=== PATIENT | male | born 1990 | race Caucasian/White ===

== ENCOUNTER 2017-12-19 12:44 | Emergency (ER) | payer OTHER, SELFPAY ==
[2017-12-19 12:45] VITALS: BP 119/67; PULSE 73; RESP 18; TEMP 36.9; O2SAT 99; BMI 30.8
--- NOTE | 2017-12-19 13:05 | EKG12_ITS ---
Test Reason : DYSRHYTHMIA Blood Pressure : / mmHG Vent. Rate : 070 BPM Atrial Rate : 070 BPM P-R Int : 150 ms QRS Dur : 104 ms QT Int : 396 ms P-R-T Axes : 062 071 016 degrees QTc Int : 427 ms Normal sinus rhythm Incomplete right bundle branch block Borderline ECG Confirmed by ALEJANDRA PATEL, HAIDER ([id number]), medical transcription editor ALLIE TRAN ([id number]) on 12/22/2017 11:27:16 AM Referred By: REGGIE Confirmed By:HAIDER ROBERTS MD
--- NOTE | 2017-12-19 13:05 | RAD_ITS ---
STUDY: X-RAY CHEST REASON FOR EXAM: Male, 27 years old. Syncopal episode. TECHNIQUE: Single AP portable view of the chest. COMPARISON: None. FINDINGS: The lungs are clear and expanded. There is no demonstrated pleural abnormality. Normal size heart. Normal mediastinum and adan. Normal visualized pulmonary arteries. Normal visualized aortic arch and descending thoracic aorta. Normal visualized thoracic spine. Normal visualized ribs, clavicles, and shoulders. There is no demonstrated abnormality of the visualized soft tissue structures of the upper abdomen. RAD/Chest 1 View (Portable) IMPRESSION: Normal x-ray examination of the chest. Electronically Signed: Chicho Dao DO at 13:35 EST Tel [phone], Service support ,
--- NOTE | 2017-12-19 13:06 | ED.VISSUMM ---
- ER Visit Summary Date of Service: 12/19/17 Chief Complaint: Passed out History of Present Illness: The patient is a 27 M no significant past medical or surgical history. Patient states he was having an argument with his when the next thing he remembered was he was on the right and passed out. Prior to the episode he denied feeling lightheaded or dizzy. He denies any headache. No chest pain. No shortness of breath. Denies any prior history of syncopal events. Denies any recent illness. He denies any headache, chest pain, shortness of breath. He denies any recent nausea, vomiting, diarrhea, fever or melena. He states his been eating and drinking normally. He currently is on no medications. He denies any injuries. Physical Examination: Well-appearing young male. Vital signs are. No acute distress. H EENT exam pupils round reactive light. No facial trauma. No facial droop. Normal speech. Scalp nontender. No signs of trauma. C-spine nontender. Trachea midline. Lungs clear to auscultation bilaterally. Heart regular rate and rhythm no murmur rate about chest wall nontender. Abdomen soft nontender. Pelvic girdle intact. Patient is moving all 4 extremities. They are neurovascularly intact. Calves are nontender without edema or cords. He has full range of motion all 4 extremities. Back exam nontender neurologically is awake and alert. No focal motor or sensory deficits. NIH is 0. Fingertip to nose within normal limits. Test Results: Chest x-ray shows normal cardiac silhouette mediastinum. EKG is acute signs of NC or ischemia. He does have an incomplete right bundle branch block. There is no old EKG available for comparison. CBC normal. White count of 9. Hemoglobin 14. Electrolytes unremarkable normal creatinine and gap. Orthostatic vital signs were negative. Emergency Department Course and Treatment: Patient with acute syncopal event. Exam is normal. On repeat exam the patient was doing well 1315. I spoke with he and his at bedside. They are comfortable with him being discharged to home. She witnessed the incident. She denies any seizure activity. Treatment Plan: Discharged home. Follow-up as an outpatient. Disposition: Discharge Impression: Acute syncope of uncertain etiology This note was generated with [employer] dictation software. It may contain incorrect words, spelling, and punctuation that were not noted in review of the chart prior to signing ED Disposition - Plan for ED Patient: Chief Complaint: Syncope Referrals: Care Physician,No Primary [Primary Care Provider] -
--- NOTE | 2017-12-19 13:09 | ED.DCSUM_ITS ---
- ER Visit Summary Date of Service: 12/19/17 Chief Complaint: Passed out History of Present Illness: The patient is a 27 M no significant past medical or surgical history. Patient states he was having an argument with his when the next thing he remembered was he was on the right and passed out. Prior to the episode he denied feeling lightheaded or dizzy. He denies any headache. No chest pain. No shortness of breath. Denies any prior history of syncopal events. Denies any recent illness. He denies any headache, chest pain, shortness of breath. He denies any recent nausea, vomiting, diarrhea, fever or melena. He states his been eating and drinking normally. He currently is on no medications. He denies any injuries. Physical Examination: Well-appearing young male. Vital signs are. No acute distress. H EENT exam pupils round reactive light. No facial trauma. No facial droop. Normal speech. Scalp nontender. No signs of trauma. C-spine nontender. Trachea midline. Lungs clear to auscultation bilaterally. Heart regular rate and rhythm no murmur rate about chest wall nontender. Abdomen soft nontender. Pelvic girdle intact. Patient is moving all 4 extremities. They are neurovascularly intact. Calves are nontender without edema or cords. He h as full range of motion all 4 extremities. Back exam nontender neurologically is awake and alert. No focal motor or sensory deficits. NIH is 0. Fingertip to nose within normal limits. Test Results: Chest x-ray shows normal cardiac silhouette mediastinum. EKG is acute signs of DE or ischemia. He does have an incomplete right bundle branch block. There is no old EKG available for comparison. CBC normal. White count of 9. Hemoglobin 14. Electrolytes unremarkable normal creatinine and gap. Orthostatic vital signs were negative. Emergency Department Course and Treatment: Patient with acute syncopal event. Exam is normal. On repeat exam the patient was doing well 1315. I spoke with he and his at bedside. They are comfortable with him being discharged to home. She witnessed the incident. She denies any seizure activity. Treatment Plan: Discharged home. Follow-up as an outpatient. Disposition: Discharge Impression: Acute syncope of uncertain etiology This note was generated with [employer] dictation software. It may contain incorrect words, spelling, and punctuation that were not noted in review of the chart prior to signing ED Disposition - Plan for ED Patient: Chief Complaint: Syncope Referrals: Care Physician,No Primary [Primary Care Provider] -
[2017-12-19 13:20] VITALS: BP 107/52; BP 112/49; BP 118/60; PULSE 69; PULSE 78; PULSE 85
[2017-12-19 13:25] LABS: Absolute Lymphocyte Count 1.35 X10^3/ul (0.83-4.51); Absolute Neutrophil Count 7.2 X10^3/uL (2.0-7.7); Basophil# 0.01 X10^3/uL; Basophil% 0.1 % (0-1); Eosinophil# 0.06 X10^3/uL; Eosinophils% 0.7 % (0-5); Hematocrit 42.3 % (40-54); Hemoglobin 14.1 g/dl (13.0-16.5); Lymphocyte # 1.35 X10^3/ul (4.0); Lymphocyte % 14.9 % (19-41); Mean Corp Hgb Conc 33.3 g/gl (32-36); Mean Corpuscular Hgb 29.1 pg (27.0-32.0); Mean Corpuscular Volume 87.4 fL (80-94); Mean Platelet Vol. 10.7 fl (6.2-12.0); Monocyte# 0.51 X10^3/uL; Monocyte% 5.6 % (0-10); Neutrophil # 7.15 X10^3/uL (2.7-7.7); Neutrophil % 78.6 % (47-70); POSITIVE COUNT NO; POSITIVE DIFFERENTIAL NO; POSITIVE MORPHOLOGY NO; Platelet Count 162 K/mm3 (150-450); RBC Distribution Width SD 38.1 fl (35.1-43.9); Red Blood Count 4.84 M/mm3 (4.6-6.2); White Blood Count 9.1 K/mm3 (4.4-11.0)
[2017-12-19 13:37] LABS: Anion Gap 6 (5-15); BUN 15 mg/dL (7-18); BUN/Creat Ratio 19.1 RATIO (10-20); Calcium,Total 8.7 mg/dL (8.5-10.1); Chloride 105 mmol/L (98-107); Creatinine, Serum 0.78 mg/dL (0.70-1.30); EST Glomerular Filtration Rate 126 mL/min (>60); Est Glom Filt Rate - Afr Amer 152 mL/min (>60); Glucose 93 mg/dL (74-106); Sodium Level 141 mmol/L (136-145)
--- NOTE | 2017-12-19 14:31 | ED.DEP ---
ED Disposition - Plan for ED Patient: Disposition: Home or Assisted Living Chief Complaint: Syncope Instructions: ED Fainting Unkn Cause Referrals: Kota Plascencia MD [STAFF PHYSICIAN] - 1 Week if not improving Additional Instructions: Follow-up with primary care physician. Return if feeling worse.
[2017-12-19 14:58] VITALS: BP 112/63; PULSE 56; RESP 16; O2SAT 99
== END 2017-12-19 14:58 | disposition home or self-care (01) ==
PROVIDERS: Emergency Provider Emergency Medicine
DX: R55 Syncope and collapse (principal); I45.10 Unspecified right bundle-branch block
CPT/HCPCS: 71045; 80048; 85025; 93005; 99285; A4216

== ENCOUNTER → 2022-05-22 | Outpatient (CLI) | payer BC, OTHER, SELFPAY ==
--- NOTE | 2022-05-22 | VAS_PTH ---
PATIENT: MAYUR SIMMS LOC: [facility]#:[id number] AGE/SX: 31/M ROOM: RE05/22/[address]: Dr. Eliezer Tate MD : 1990 BED: DIS: 05/22/2022 SPEC #: [id number] RECD: 05/22/22 14:22 STATUS: CHASE RENash #: [id number] ROMAN: 05/22/22 00:[address]: Eliezer Tate DEPT: SURGICAL PATHOLOGY RECD BY: Christopher Strickland ENTERED: 05/25/22 11:29 SP TYPE: VAS OTHR DR: Vida Primary Care Phys Tissues: A - Vas deferens, NOS B - Vas deferens, NOS Procedures: Surgery Specimen Level II HEADER OPERATION: Bilateral partial vasectomy PRE-OP DIAGNOSIS: Sterilization TISSUE SUBMITTED: A ? Right vas deferens, B ? Left vas deferens MICROSCOPIC DIAGNOSIS A. Right vas deferens, partial vasectomy: Completely transected segment of vas deferens, no pathologic diagnosis. B. Left vas deferens, partial vasectomy: Completely transected segment of vas deferens, no pathologic diagnosis. JOSE:anita 05/26/2022 MICROSCOPIC DESCRIPTION Slides are reviewed. GROSS DESCRIPTION A - Received is one container designated right vas deferens. The specimen consists of a cylindrical segment of pink-villegas soft tissue measuring 1.2 cm in length and 0.2 cm in maximum diameter. The specimen is serially sectioned and totally submitted in one cassette. B - Received is one container designated left vas deferens. The specimen consists of a cylindrical segment of pink-villegas soft tissue measuring 1.0 cm in length and 0.2 cm in maximum diameter. The specimen is serially sectioned and totally submitted in one cassette. / AM:anita 05/25/2022 TC:4 CPT: 20892 x2
== END | disposition home or self-care (01) ==
PROVIDERS: Visit Provider Surgery
DX: Z30.2 Encounter for sterilization (principal)
CPT/HCPCS: 88302

== ENCOUNTER 2022-08-09 19:13 | Emergency (ER) | payer BC, OTHER, SELFPAY ==
[2022-08-09 19:14] VITALS: BP 140/86; PULSE 92; RESP 16; TEMP 36.4; O2SAT 96; BMI 38.5
[2022-08-09 19:30] VITALS: PULSE 75; RESP 16; O2SAT 99
--- NOTE | 2022-08-09 19:30 | EX.ED.DYSGE1 ---
HPI History of Present Illness Chief Complaint: Rash Detail of Chief Complaint: Rash Informant: patient Narrative Narrative: Patient presents with a rash that started yesterday. 2 days ago he had some chills and when he checked his temperature he did not have a fever and the highest he could get it was 99. Patient tells me that he has 3 children and 2 weeks ago they were all diagnosed with pusn-ranv-rfc-mouth disease. Patient has had a sore throat for 2 days. Denies any new soaps or detergents. Denies any exposures to poison frank or poison oak. PFSH PFS Medical History Arthritis Headaches, cluster Home Medications acetaminophen 300 mg-codeine 15 mg tablet 1 tab PO Q6H PRN pain #10 tabs 05/22/22 [Rx Last Taken Unknown] Allergy/AdvReac Type Severity Reaction Status Date / Time No Known Allergies Allergy Verified 05/29/22 07:51 Family History Other Colon cancer Heart disease Myocardial infarction Surgical History No significant past surgical history Social History Smoking Status: Never smoker alcohol intake: current alcohol intake frequency: a few times a month Alcohol type: beer substance use type: does not use what type of physical activity do you participate in: walking and aerobics frequency: 3-4 times per week ROS ROS ED Review of Systems ROS Unobtainable: other Constitutional Constitutional ED: Reports lethargy; Denies chills, fever(s), sweats or weight loss Eyes Eyes: Denies blurry vision, change in vision or diplopia ENT ENT ED: Reports sore throat; Denies rhinorrhea Cardiovascular Cardiovascular: Denies chest pain, orthopnea or racing heartbeat Respiratory/Chest Respiratory/Chest: Denies cough, dyspnea, dyspnea on exertion, orthopnea or sputum Gastrointestinal Gastrointestinal: Denies abdominal pain, diarrhea, nausea or vomiting Genitourinary Genitourinary ED: Denies dysuria, hematuria or urinary frequency Musculoskeletal Musculoskeletal: Denies arthralgias, back pain, myalgias or neck pain Integumentary Reports rash; Denies abscess or Abrasions Neurologic Neurologic: Denies headache(s) or weakness Psychiatric Psychiatric: Denies anxiety, depression or suicidal thoughts Endocrine Endocrinology: Denies polydipsia, polyphagia or polyuria Hematologic/Lymphatic Hematologic/Lymphatic: Denies easy bleeding, easy bruising or lymphadenopathy Allergic/Immunologic Allergic/Immunologic ED: Denies mouth swelling, tongue swelling or urticaria EXAM Physical Exam Const Vital Signs: 08/09/22 19:14 Temperature 97.5 F L Temperature Source Temporal Pulse Rate 92 Respiratory Rate 16 Blood Pressure 140/86 H Blood Pressure Mean 104 Pulse Ox 96 Oxygen Delivery Method Room Air Positive well nourished and well developed General Appearance ED: well developed and NAD HEENT Reports TM's clear and moist mucous membranes HEENT Narrative: Patient with pharyngeal erythema and ulcerative lesions involving the soft palate as well as the tonsils and oral buccal mucosa. normocephalic and atraumatic; Negative for trauma or tenderness Tympanic Membrane ED: Yes TM's clear Eyes PERRL and EOMs intact bilaterally General Eye ED: Negative for pale conjunctiva or scleral icterus Neck no lymphadenopathy, supple and no JVD General: Negative for tenderness Chest Wall inspection of chest normal and palpation of chest normal Chest: Negative for tenderness Resp normal respiratory effort and clear to auscultation bilaterally Effort and Inspection: Negative for respiratory distress or pain with movement Auscultation: Negative for rhonchi, wheezes or diminished lung sounds Cardio regular rate, regular rhythm, S1 normal heart sound, S2 normal heart sound and no murmurs Peripheral Pulses: pulses 2+ throughout GI normal to inspection, nondistended, normoactive bowel sounds, soft to palpation, non-tender, non-distended and no masses Back/Spine no CVA tenderness and no thoracic nor lumbar tenderness Extremity normal to inspection General Extremety ED: Negative for edema General Extremity: Negative for edema Neuro oriented x3, CN's II-XII intact bilaterally, no sensory deficits noted and gait normal Sensorium / Orientation: awake, alert, oriented to person, oriented to place and oriented to time Motor Exam: strength 5/5 throughout and strength abnormal Psych mental status grossly normal Skin no wounds Skin Narrative: Patient with rash involving upper and lower extremities including the feet and hands there is erythematous slightly raised in places and oval shaped with some coalescence of lesions. Exam consistent with wxbz-jdda-due-mouth disease. MDM MDM MDM Narrative Medical decision making narrative: Patient with recent exposure to ggva-iknu-zra-mouth disease. Presents with lesions in his mouth as well as rash to his hands and feet as well as the upper and lower extremities. Patient nontoxic-appearing. There are no purpura or petechiae. Exam consistent with ulrg-disx-sno-mouth disease/coxsackievirus. No further treatment indicated. He is to push fluids and use ibuprofen or Tylenol for discomfort. Discharge Plan Triage Chief Complaint: Rash ED Provider: Eloy Packer Dx/Rx/DC Orders Clinical Impression: Hand, foot and mouth disease Instructions: ED Hand Foot Mouth Disease (Child) Prescriptions: No Action acetaminophen-codeine 300-15 mg tablet 1 tab PO Q6H PRN (Reason: pain) Qty: 10 0RF Primary Care Provider: Surendra Huang Referrals: Care Physician,No Primary [Non-Staff] - Activity Restrictions/Additional Instructions: Follow-up with your primary care physician in 5 to 7 days.
== END 2022-08-09 19:41 | disposition home or self-care (01) ==
LOC: ED 19:33
PROVIDERS: Emergency Provider Emergency Medicine; PCP Family Medicine; Visit Provider Emergency Medicine
DX: J02.9 Acute pharyngitis, unspecified (principal); B08.4 Enteroviral vesicular stomatitis with exanthem
CPT/HCPCS: 99282

== ENCOUNTER 2023-12-09 22:13 | Emergency (ER) | payer BC, OTHER, SELFPAY ==
[2023-12-09 22:14] VITALS: BP 139/82; PULSE 90; RESP 16; TEMP 36.9; O2SAT 98; BMI 37.0
--- NOTE | 2023-12-09 22:26 | US_ITS ---
INDICATION: Left testicular pain EXAMINATION: Ultrasound US Scrotum (Contents) TECHNIQUE: Realtime ultrasound of the testicles was performed with grayscale, Color Doppler and spectral Doppler analysis. COMPARISON: No relevant prior comparison study available FINDINGS: RIGHT: TESTIS: 4.7 x 3.7 x 2.8 cm. Normal in size and echotexture, without focal lesion. COLOR DOPPLER: Normal arterial flow present in the testicle with monophasic waveforms. EPIDIDYMIS: Normal in size and echotexture, without focal lesion. [Normal color Doppler flow pattern in the epididymis. HYDROCELE: None. VARICOCELE: None. LEFT: TESTIS: 4 x 4 x 2.6 cm. Normal in size and echotexture, without focal lesion. COLOR DOPPLER: Normal arterial and venous spectral waveforms with overall increased Doppler vascularity. EPIDIDYMIS: Normal in size and echotexture, without focal lesion. [Normal color Doppler flow pattern in the epididymis. HYDROCELE: Small VARICOCELE: Small US/Testicular with Arterial Flow IMPRESSION: No testicular torsion or mass. Hyperemia of the left testicle suggestive of orchitis. Electronically Signed: Karri Gutiérrez MD at 23:49 EDT ,
--- NOTE | 2023-12-09 22:27 | EDS_ITS ---
HPI <Dr. Jan Napoles DO - Last Filed: 12/09/23 23:42> History of Present Illness Chief Complaint: Male Pain/Injury Informant: patient Pain Onset: Days (4) Context: Gradual Onset Timing: Continuous Worsened by: Nothing Relieved by: Icing Urinary Symptoms Genitourinary Symptoms: No Symptoms Narrative Narrative: Patient presents with left testicular pain and swelling that has been getting worse over the past 4 days. Patient states he started having some pain 3 days ago. Patient states it is gradually gotten worse. Patient states he noticed some swelling today. Patient describes his pain as sharp and stabbing. Patient states he has been using ice which has been helping. Patient has nausea makes it worse. Patient denies any urethral discharge or drainage. Patient denies any dysuria, frequency, or urgency. Patient denies any fevers or chills. Patient admits to some nausea but denies any vomiting. PFSH <Dr. Jan Napoles DO - Last Filed: 12/09/23 23:42> [facility] Medical History Headaches, cluster Arthritis Home Medications ?Medication ?Instructions ?Recorded ?Last Taken ?Type acetaminophen 300 mg-codeine 15 mg 1 tab PO Q6H PRN pain #10 tabs 05/22/22 Unknown Rx tablet levofloxacin 500 mg tablet 500 mg PO DAILY #9 tabs 12/09/23 Unknown Rx Allergy/AdvReac Type Severity Reaction Status Date / Time No Known Allergies Allergy Verified 12/09/23 22:16 Family History Other Colon cancer Heart disease Myocardial infarction Surgical History No significant past surgical history Social History Smoking Status: Never smoker alcohol intake: current alcohol intake frequency: a few times a month Alcohol type: beer substance use type: does not use what type of physical activity do you participate in: walking and aerobics frequency: 3-4 times per week ROS <Dr. Jan Napoles, - Last Filed: 12/09/23 23:42> ROS ED Constitutional Constitutional ED: Denies chills or fever(s) Eyes Eyes: Denies blurry vision or change in vision ENT ENT ED: Denies rhinorrhea or sore throat Cardiovascular Cardiovascular: Denies chest pain or palpitations Respiratory/Chest Respiratory/Chest: Denies cough or dyspnea Gastrointestinal Gastrointestinal: Reports nausea; Denies vomiting Genitourinary Genitourinary ED: Denies dysuria or hematuria Musculoskeletal Musculoskeletal: Denies back pain or neck pain Integumentary Denies abscess or rash Neurologic Neurologic: Denies headache(s) or weakness Allergic/Immunologic Allergic/Immunologic ED: Denies mouth swelling or urticaria EXAM <Dr. Jan Napoles, - Last Filed: 12/09/23 23:42> Physical Exam Const Vital Signs: 12/09/23 22:14 Temperature 98.4 F Temperature Source Oral Pulse Rate 90 Respiratory Rate 16 Blood Pressure 139/82 H Blood Pressure Mean 101 Pulse Ox 98 Oxygen Delivery Method Room Air Positive well nourished and well developed General Appearance ED: well developed HEENT Reports moist mucous membranes Neck supple and no JVD GI non-tender and non-distended Palpation: soft Narrative: There is tenderness and edema over the left testicle and epididymis. There is also tenderness up into the inguinal canal. There is no hernia palpated. There are no masses palpated. There is a vertical lie. The epididymis is posterior. There is no tenderness or edema of the right testicle. There is no tenderness in the right inguinal canal. There are no penile lesions noted. Extremity normal to inspection General Extremety ED: Negative for edema General Extremity: Negative for edema Neuro oriented x3, CN's II-XII intact bilaterally, moves all extremities, no focal motor deficits and no sensory deficits noted Sensorium / Orientation: alert Motor Exam: strength 5/5 throughout Psych mental status grossly normal <Dr. Jacob Lechuga MD - Last Filed: 12/10/23 00:03> Physical Exam Const Vital Signs: 12/09/23 22:14 Temperature 98.4 F Temperature Source Oral Pulse Rate 90 Respiratory Rate 16 Blood Pressure 139/82 H Blood Pressure Mean 101 Pulse Ox 98 Oxygen Delivery Method Room Air MDM <Dr. Jan Napoles, - Last Filed: 12/09/23 23:42> MDM MDM Narrative Medical decision making narrative: Differential diagnosis includes orchitis, epididymitis, testicular torsion, and urinary tract infection. CBC will be obtained to assess for leukocytosis and anemia. Basic metabolic profile will be obtained to assess for electrolyte abnormality and renal function. Urinalysis will be obtained to assess for urinary tract infection and hematuria. Testicular ultrasound will be obtained to assess for testicular torsion. Lab Data Attestation: I reviewed the patient's lab results. Lab results narrative: CBC was reviewed and was within normal limits. Basic metabolic profile was reviewed and was essentially within normal limits. Urinalysis was reviewed. Leukocyte esterase was 25. There is no evidence of urinary tract infection or hematuria. Labs: Laboratory Results - last 24 hr 12/09/23 12/09/23 22:27 22:39 WBC 10.3 RBC 5.05 Hgb 14.3 Hct 43.6 MCV 86.3 MCH 28.3 MCHC 32.8 RDW Std Deviation 37.1 RDW Coeff of Navid 11.7 Plt Count 195 MPV 10.9 Immature Gran % (Auto) 0.400 Neut % (Auto) 70.4 H Lymph % (Auto) 22.6 Glades % (Auto) 6.2 Eos % (Auto) 0.3 Baso % (Auto) 0.1 Absolute Neuts (auto) 7.2 Absolute Lymphs (auto) 2.32 Nucleated RBC % 0 Sodium 140 Potassium 3.6 Chloride 104 Carbon Dioxide 31.0 Anion Gap 5 BUN 23 H Creatinine 1.00 Estim Creat Clear Calc 151.05 Est GFR (MDRD) Af Amer 110 Est GFR (MDRD) Non-Af 91 BUN/Creatinine Ratio 23.0 H Glucose 100 Calcium 9.2 Urine Color Yellow Urine Clarity Clear Urine pH 5.0 Ur Specific [place] 1.025 Urine Protein 15 H Urine Glucose (UA) Normal Urine Ketones Negative Urine Occult Blood 10 H Urine Nitrite Negative Urine Bilirubin Negative Urine Urobilinogen Normal Ur Leukocyte Esterase 25 H Urine RBC 0-5 SEEN Urine WBC 0-5 SEEN Ur Squamous Epith Cells Not Reportable Urine Bacteria RARE Hyaline Casts 0-5 SEEN Urine Mucus 3+ Radiography Diagnostic Testing: Clinical Impression(s) from Imaging Studies Testicular Ultrasound 12/09/23 22:26 IMPRESSION: No testicular torsion or mass. Hyperemia of the left testicle suggestive of orchitis. Electronically Signed: Karri Gutiérrez MD at 23:49 EDT , Testicular ultrasound was obtained. <Dr. Jacob Lechuga MD - Last Filed: 12/10/23 00:03> [facility] Narrative Medical decision making narrative: Differential diagnosis includes orchitis, epididymitis, testicular torsion, and urinary tract infection. CBC will be obtained to assess for leukocytosis and anemia. Basic metabolic profile will be obtained to assess for electrolyte abnormality and renal function. Urinalysis will be obtained to assess for urinary tract infection and hematuria. Testicular ultrasound will be obtained to assess for testicular torsion. Patient checked out to me around 11:45 PM. Initiating physician had already checked his lab work which was unremarkable. He had ordered an ultrasound which showed orchitis. I discussed that with the patient. He had been written for Levaquin and given his first dose here. Outpatient follow-up. Patient is doing well at 12:01 AM and will be discharged to home. Patient is comfortable with the plan. Lab Data Labs: Laboratory Results - last 24 hr 12/09/23 12/09/23 22:27 22:39 WBC 10.3 RBC 5.05 Hgb 14.3 Hct 43.6 MCV 86.3 MCH 28.3 MCHC 32.8 RDW Std Deviation 37.1 RDW Coeff of Navid 11.7 Plt Count 195 MPV 10.9 Immature Gran % (Auto) 0.400 Neut % (Auto) 70.4 H Lymph % (Auto) 22.6 [place] % (Auto) 6.2 Eos % (Auto) 0.3 Baso % (Auto) 0.1 Absolute Neuts (auto) 7.2 Absolute Lymphs (auto) 2.32 Nucleated RBC % 0 Sodium 140 Potassium 3.6 Chloride 104 Carbon Dioxide 31.0 Anion Gap 5 BUN 23 H Creatinine 1.00 Estim Creat Clear Calc 151.05 Est GFR (MDRD) Af Amer 110 Est GFR (MDRD) Non-Af 91 BUN/Creatinine Ratio 23.0 H Glucose 100 Calcium 9.2 Urine Color Yellow Urine Clarity Clear Urine pH 5.0 Ur Specific [place] 1.025 Urine Protein 15 H Urine Glucose (UA) Normal Urine Ketones Negative Urine Occult Blood 10 H Urine Nitrite Negative Urine Bilirubin Negative Urine Urobilinogen Normal Ur Leukocyte Esterase 25 H Urine RBC 0-5 SEEN Urine WBC 0-5 SEEN Ur Squamous Epith Cells Not Reportable Urine Bacteria RARE Hyaline Casts 0-5 SEEN Urine Mucus 3+ Radiography Diagnostic Testing: Clinical Impression(s) from Imaging Studies Testicular Ultrasound 12/09/23 22:26 IMPRESSION: No testicular torsion or mass. Hyperemia of the left testicle suggestive of orchitis. Electronically Signed: Karri Gutiérrez MD at 23:49 EDT Reading Location ID and State: [address] [place] [address] Tel , Service support , Discharge Plan Triage Chief Complaint: Male Pain/Injury ED Provider: Jan Napoles Dx/Rx/DC Orders Clinical Impression: Body mass index (BMI) of 30 to 39 in adult, Acute orchitis Instructions: ED Orchitis Prescriptions: New levofloxacin 500 mg tablet 500 mg PO DAILY Qty: 9 0RF No Action acetaminophen-codeine 300-15 mg tablet 1 tab PO Q6H PRN (Reason: pain) Qty: 10 0RF Primary Care Provider: Surendra Huang Referrals: Surendra Huang MD [Primary Care Provider] - 5-7 Days Activity Restrictions/Additional Instructions: Motrin and Tylenol for pain. Take your antibiotic daily as prescribed. Call and follow-up your primary care physician to ensure you are improving. Return if you feel a lot worse. Print Language: Luxembourger Disposition Disposition: Home, Self Care
[2023-12-09 22:36] LABS: Color, Urine Yellow (Yellow); Glucose, Dipstick Normal (Normal); Ketone-Dipstick Negative (Negative); Leukocyte Esterase-Dipstick 25 /ul (Negative); Nitrite-Dipstick Negative (Negative); Occult Blood-Urine 10 /ul (Negative); Protein-Dipstick 15 mg/dl (Negative); Specific Gravity, Urine 1.025 (1.002-1.030); Urine Bilirubin Dipstick Negative (Negative); Urine Clarity Clear (Clear); Urine Urobilinogen Normal (Normal)
[2023-12-09 22:44] LABS: Absolute Lymphocyte Count 2.32 X10^3/uL (0.83-4.51); Absolute Neutrophil Count 7.2 X10^3/uL (2.0-7.7); Basophil# 0.01 X10^3/uL; Basophil% 0.1 % (0-1); Eosinophil# 0.03 X10^3/uL; Eosinophils% 0.3 % (0-5); Hematocrit 43.6 % (40-54); Hemoglobin 14.3 g/dL (13.0-16.5); Lymphocyte # 2.32 X10^3/ul (0.83-4.51); Lymphocyte % 22.6 % (19-41); Mean Corp Hgb Conc 32.8 g/dL (32-36); Mean Corpuscular Hgb 28.3 pg (27.0-32.0); Mean Corpuscular Volume 86.3 fL (80-94); Mean Platelet Vol. 10.9 fl (6.2-12.0); Monocyte# 0.64 X10^3/uL; Monocyte% 6.2 % (0-10); NRBC Flagged by Analyzer 0 % (0-5); Neutrophil # 7.22 X10^3/uL (2.7-7.7); Neutrophil % 70.4 % (47-70); Platelet Count 195 K/mm3 (150-450); RBC Distribution Width CV 11.7 % (11.6-14.6); RBC Distribution Width SD 37.1 fl (35.1-43.9); Red Blood Count 5.05 M/mm3 (4.6-6.2); White Blood Count 10.3 K/mm3 (4.4-11.0)
[2023-12-09 22:56] LABS: Bacteria RARE /hpf (None Seen); Hyaline Cast 0-5 SEEN /lpf (0-5); Mucous, Urine 3+ /hpf (<or=2+); Red Blood Cells-Urine 0-5 SEEN /hpf (0-5); White Blood Cells 0-5 SEEN /hpf (0-5)
[2023-12-09 22:58] LABS: Anion Gap 5 (5-15); BUN 23 mg/dL (7-18); Calcium,Total 9.2 mg/dL (8.5-10.1); Chloride 104 mmol/L (98-107); EST Glomerular Filtration Rate 91 mL/min (>60); Est Glom Filt Rate - Afr Amer 110 mL/min (>60); Estimated Creatinine Clearance 151.05 ml/min; Glucose 100 mg/dL (74-106); Potassium 3.6 mmol/L (3.5-5.1); Sodium Level 140 mmol/L (136-145)
[2023-12-09] MEDS: levoFLOXacin 500 MG Tablet PO (23:49)
[2023-12-10 00:01] VITALS: BP 132/57; PULSE 82; RESP 18; TEMP 36.9; O2SAT 98
== END 2023-12-10 00:06 | disposition home or self-care (01) ==
PROVIDERS: Emergency Provider Emergency Medicine; PCP Family Medicine; Visit Provider Emergency Medicine
DX: N45.2 Orchitis (principal)
CPT/HCPCS: 76870; 80048; 81001; 85025; 93976; 99283; A4216

== ENCOUNTER 2024-06-11 21:49 | Emergency (ER) | payer OTHER, SELFPAY ==
[2024-06-11 21:49] VITALS: BP 144/88; PULSE 83; RESP 16; TEMP 36.5; O2SAT 93; BMI 36.3
--- NOTE | 2024-06-11 22:22 | EX.ED.UPPERE ---
HPI History of Present Illness HPI Narrative: 33-year-old male no seen past medical history. [id number]. Was sharpening a knife around 8 to 8:30 PM the night. Accidentally lacerated his right ring finger at the tip. He has been unable to get the bleeding to stop. States his tetanus is up-to-date in the last 5 years. No other complaints. Chief Complaint: Laceration Informant: patient Occured/Mechanism Mechanism/Context: Yes injury Onset/Context/Timing Onset: Today and Hours Context: Sudden Onset Timing: Continuous Quality of Pain: Sharp Current Severity: Mild Maximum Severity: Mild Narrative Narrative: 33-year-old male no seen past medical history. [id number]. Laceration right ring fingertip on a knife that he was sharpening. Tetanus up-to-date. Tetanus Immunization: <5 years Prior similar symptoms: No Recent Illness/Hospitalization: No PFSH PFSH Medical History Headaches, cluster Arthritis Home Medications ?Medication ?Instructions ?Recorded ?Last Taken ?Type NK 06/11/24 Unknown History Allergy/AdvReac Type Severity Reaction Status Date / Time No Known Allergies Allergy Verified 06/11/24 21:49 Family History Other Colon cancer Heart disease Myocardial infarction Surgical History No significant past surgical history Social History Smoking Status: Former smoker alcohol intake: current alcohol intake frequency: a few times a month Alcohol type: beer substance use type: does not use what type of physical activity do you participate in: walking and aerobics frequency: 3-4 times per week ROS ROS ED ROS Narrative Recent URI. Constitutional Constitutional ED: Denies chills or fever(s) Eyes Eyes: Denies blurry vision ENT ENT ED: Denies ear pain Cardiovascular Cardiovascular: Denies chest pain Respiratory/Chest Respiratory/Chest: Denies cough Gastrointestinal Gastrointestinal: Denies abdominal pain Genitourinary Genitourinary ED: Denies dysuria Musculoskeletal Musculoskeletal: Denies back pain Integumentary Denies abscess Neurologic Neurologic: Denies headache(s) Psychiatric Psychiatric: Denies anxiety Endocrine Endocrinology: Denies cold intolerance Hematologic/Lymphatic Hematologic/Lymphatic: Denies easy bleeding, easy bruising or lymphadenopathy Allergic/Immunologic Allergic/Immunologic ED: Denies mouth swelling, tongue swelling or urticaria EXAM Physical Exam Narrative Exam Narrative: Well-appearing 33-year-old male. Vital signs stable afebrile. H EENT exam unremarkable. Moist with membranes. Lungs clear. Heart regular rhythm rate about 80 no murmur. Abdomen soft nontender. Moving all 4 extremities. Neurovascular intact. Right hand. Ring finger to tip he has about a 1 and half inch laceration involves the skin and subcu tissue. Mild bleeding. No pulsatile bleeding. Full flexion extension. No foreign body. No infection. No swelling. Normal touch sensation. Normal range of motion. Otherwise exam unremarkable. Const Vital Signs: 06/11/24 21:49 Temperature 97.7 F L Temperature Source Oral Pulse Rate 83 Respiratory Rate 16 Blood Pressure 144/88 H Blood Pressure Mean 106 Pulse Ox 93 Oxygen Delivery Method Room Air Positive well nourished and well developed; Negative for cachectic, contractures or unkempt General Appearance ED: well developed and NAD; Negative for unkempt, cachectic, contractures, cyanotic or diaphoretic Nutritional Appearance: Negative for cachectic HEENT Reports moist mucous membranes normocephalic and atraumatic Eyes PERRL and EOMs intact bilaterally Neck full ROM and supple Chest Wall inspection of chest normal and palpation of chest normal Resp normal respiratory effort and clear to auscultation bilaterally Cardio regular rate, regular rhythm, S1 normal heart sound, S2 normal heart sound and no murmurs GI non-tender, non-distended and no masses Back/Spine no CVA tenderness Extremity normal to inspection and full ROM Extremity Narrative: Except right ring finger at the tip 1-1/2 inch laceration. Mild bleeding. No clots. No pulsatile bleeding. No infection or foreign body. Area will need to be suture repaired. Neuro oriented x3, CN's II-XII intact bilaterally, moves all extremities, no focal motor deficits and no sensory deficits noted Sensorium / Orientation: alert, oriented to person, oriented to place and oriented to time Motor Exam: strength 5/5 throughout Psych mental status grossly normal Appearance: Negative for unkempt Attitude: No agitated Mood & Affect: Negative for depressed, anxious or tearful Skin General Skin Exam: Negative for petechiae Lesions: no lesions Rashes: no rashes Trauma: laceration linear, actively bleeding, No pulsatile bleeding, No foreign body present, No contaminated, involves subcutaneous tissue, No involves muscle tissue, motor nerve function intact and sensation intact MDM MDM MDM Narrative Medical decision making narrative: 33-year-old male [id number]. Tetanus up-to-date. Right ring finger laceration to the tip. We cleaned it. It is actively bleeding. I gave him options of suture repair versus Dermabond. He uses his hand a lot. He is concerned with Dermabond more old. We will locally anesthetize the wound. Clean it and place simple opted sutures to get the bleeding stopped. He will be instructed on wound care and suture removal. History & Record Review Discussion w/independent historian: Patient Procedures Lacerations Right ring fingertip laceration with ER repair:: Length: 1.5 in Depth: Sub Q Shape: Linear Prep: Shjamila-Clens Laceration repair: Irrigated, Lidocaine, Local, Skin sutures and Wound explored Number of Sutures/Johnathon: 3 Suture Information: Ethilon, Simple and 4-0 Comment: Right ring finger tip laceration. About 1-1/2 inches in length. Involves skin and subcu tissue. Mild bleeding. Nonpulsatile. No foreign body or infection. Neurovascular intact. Full range of motion. Normal sensation. Locally anesthetized with 1% lidocaine. Once proper anesthetic was obtained. Cleaned with Shyvette-Clens washed and irrigated with saline. Explored. Closed using 3 simple erupted 4-0 Ethilon sutures. Proper hemostasis and wound closure obtained. Patient tolerated procedure well. Instructed on wound care suture removal in 10 days. Nurse will clean and dress the wound prior to discharge. Discharge Plan Triage Chief Complaint: Laceration ED Provider: Jacob Lechuga Dx/Rx/DC Orders Clinical Impression: Finger laceration Instructions: ED Laceration, Hand: All Closures Prescriptions: No Action NK Primary Care Provider: Surendra Huang Referrals: Surendra Huang MD [Primary Care Provider] - 10 Day for suture removal Activity Restrictions/Additional Instructions: If our dressing stays dry and clean leave it on for for 5 days. If it gets dirty, water bleeds through take it off clean and throw a Band-Aid on it. When she started changing the dressing. Daily clean it with soap water or peroxide and water. Clean and dry thoroughly. Watch for any signs of infection such as pus, fever, red streaks or swelling if seen return. Stitches out in 10 days. Keep it clean dry and covered at work. Print Language: Romansh Disposition Disposition: Home, Self Care
[2024-06-11] MEDS: Lidocaine 1% (20 ml mdv) 20 ML Vial 10 ML INFILT (22:47)
[2024-06-11 22:57] VITALS: BP 132/74; PULSE 87; RESP 16; TEMP 36.7; O2SAT 99
== END 2024-06-11 22:59 | disposition home or self-care (01) ==
LOC: ED 22:48
PROVIDERS: Emergency Provider Emergency Medicine; PCP Family Medicine; Visit Provider Emergency Medicine
DX: S61.214A Laceration without foreign body of right ring finger without damage to nail, initial encounter (principal); W26.0XXA Contact with knife, initial encounter; Y93.89 Activity, other specified; Z87.891 Personal history of nicotine dependence
CPT/HCPCS: 12001; 99283